=== PATIENT | female | born 1940 | race Caucasian/White ===

== ENCOUNTER 2025-02-19 21:46 | Inpatient (IN) ==
[2025-02-19 22:23] LABS: Hematocrit (blood only) 36.7 % (37.0-47.0); Hemoglobin 11.7 g/dl (12.0-16.0); Immature Granulocytes # (auto) 0.04 K/uL (0.01-0.20); Immature Granulocytes % (auto) 0.3 %; Mean Corpuscular Hemoglobin 29.3 pg (25.0-34.0); Mean Corpuscular Volume 92.0 fL (80.0-100.0); Platelet Count 309 K/uL (130-400); RDW Standard Deviation 46.0 fL (36.4-46.3); Red Blood Count 3.99 M/uL (4.20-5.40); White Blood Count 13.33 K/ul (4.8-10.8)
[2025-02-19 22:40] LABS: Alanine Aminotransferase 10.0 U/L (7-52); Albumin Globulin Ratio 1.1 (0.9-2); Alkaline Phosphatase 87.0 U/L (34-104); Anion Gap 11.0 (3-11); Bilirubin,Total 0.5 mg/dl (0.2-1.0); Blood Urea Nitrogen 31.0 mg/dl (6-23); Calcium 9.0 mg/dl (8.6-10.3); Carbon Dioxide 21.0 mmol/L (21-32); Chloride 106.0 mmol/L (98-107); Creatinine Clr Calc Pharmacy 44.5 ml/min; Globulin 3.6 gm/dl (2.5-4.0); Glucose 205.0 mg/dl (70-99(Fasting)); Lipase 53.0 U/L (11-82); Potassium 4.8 mmol/L (3.5-5.1); Sodium 138.0 mmol/L (136-145); Total Protein 7.5 gm/dl (6.0-8.3)
[2025-02-19 22:52] LABS: Appearance Urine Cloudy (Clear); Bacteria Urine Automated 4+ (None Seen); Cast Urine Automated 0-2 /lpf (0-2); Glucose Urine UA 2+ (Negative); WBC Urine Automated 21-50 /hpf (0-5)
[2025-02-19] MEDS: ONDANSETRON INJ 2 MG/ML 2 ML VIAL IV STA (23:13)
--- NOTE | 2025-02-19 23:58 | Emergency Department Note ---
Impression & Plan Acute upper abdominal pain, Cholelithiasis, Nausea, vomiting, and diarrhea, Acute UTI (urinary tract infection) ED Provider Note NAME: MAT CAZARES AGE: 85 SEX: Female INFORMANT: Patient ED PROVIDER(S): Danny Velasco MD CHIEF COMPLAINT: Nausea and vomiting PLAN: Disposition: Admitted Outpatient prescription management: none Referral: None MEDICAL DECISION MAKING: Patient presented because of nausea and vomiting. She also had chills. She had abdominal discomfort. She was tender in the epigastrium. Patient's CBC revealed a leukocytosis. Her urinalysis was abnormal and did raise concerns for infection although she has minimal symptoms. CT scan of the abdomen pelvis was performed. ECG performed and was abnormal without prior for comparison. Patient does not have any chest pain. She felt better after Zofran. CT imaging revealed presence of cholelithiasis. The patient was having discomfort in the right upper quadrant. Patient was given a dose of IV Rocephin. Discussed further evaluation and management in the hospital. Ultrasound imaging ordered. Consultation was made with Dr. Teja Banegas of the [facility] service. Patient was evaluated in the ER for further management. Care/management discussed with: patient accounts manager Level of care consideration(s): After review of the information above and other included data, I feel the patient requires escalation of care to admission Triage Nursing notes: reviewed and agree them. Vital Signs: reviewed and remarkable for no significant abnormalities Additional History obtained from: none Chronic Medical/Social Conditions affecting care: Hypertension, CAD, diabetes Prior/ Outside/ External records reviewed: none Differential Diagnosis: Etiologies such as gastroenteritis, food borne illness, infections, appendicitis, diverticulitis, inflammatory bowel disease, GI bleed, biliary pathology, as well as others were entertained. Diagnostics, independently interpreted by me: ECG: Twelve-lead ECG reveals a normal sinus rhythm at 75 bpm. Sinus arrhythmia present. Inferior lateral T wave inversions present. No prior for comparison. Cardiac Monitoring: Cardiac monitoring ordered by me: The patient was placed on continuous cardiac monitoring and observed. It revealed a normal sinus rhythm at 64 beats per minute without ectopy or evidence of dysrhythmia. Medical decision rules: none Imaging studies: CT scan as above. Cholelithiasis HPI: 85 year old Female arrives for evaluation of nausea, vomiting, diarrhea. This started after lunch today and is persisting. Patient states that she took a bite of crab cake and it was spicy. She did not finish this. She then noted about an hour later she developed the nausea and vomiting. The patient also notes the following associated symptoms, chills. Patient also noted that her blood sugar was elevated at 186. She notes epigastric abdominal pain. The patient has found no relieving factors. Current pain is rated as 4/10. Patient denies history of abdominal surgeries. She does note an umbilical hernia. She also notes a history of coronary artery disease and CABG. Patient denied any chest pain with this episode. She also has some chronic low back pain issues. Pt denies LOC, headache, fevers, diaphoresis, visual changes, neck pain, chest pain, breathing difficulties, new back pain, melena, hematochezia, urinary symptoms, numbness, weakness, lymphadenopathy, rash, or other complaints.. PAST MEDICAL HISTORY: See Below, CAD PAST SURGICAL HISTORY: See Below, CABG SOCIAL HISTORY: See Below, retired HOME MEDICATIONS: See Below ALLERGIES: See Below VITALS: See Below PHYSICAL EXAMINATION: GENERAL: Awake, alert, [id number], in no distress HENT: Normocephalic, atraumatic. Oropharynx unremarkable. EYES: Normal conjunctiva. Sclera non-icteric. NECK: Inspection normal. Non-tender. Supple. No nuchal rigidity. FROM. No masses. RESPIRATORY: Clear to auscultation. No wheezes. No rales. Normal respiratory effort. CARDIAC: Normal rate. Normal rhythm. No murmurs. No rubs. Extremities warm and well perfused. Pulses equal. No JVD. GI: Soft, non-distended. Epigastric tenderness to palpation. No rebound or guarding. No masses. RECTAL: Deferred. MUSCULOSKELETAL: Atraumatic. Chest examination reveals no tenderness. The back is symmetrical on inspection without obvious abnormality. There is no CVA tenderness to palpation. No joint edema. LOWER EXTREMITIES: Calves are equal size bilaterally and non-tender. No edema. No discoloration. NEURO: Normal sensorium. No sensory or motor deficits noted. SKIN: No rash or jaundice noted. 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 Beliefs That Will Affect Care: None Current Living Situation: Alone Feels Safe at Home: Yes Assistive Devices: CPAP Allergies Allergies Allergy/AdvReac Type Severity Reaction Status Date / Time [id number] Reductase AdvReac Cramping Verified 02/19/25 23:13 Inhibitor of the Muscles Home Meds Home Medications Medication Instructions Recorded Confirmed acetaminophen 500 mg tablet 500 mg PO BID 02/20/25 02/20/25 acidophilus 100 million 1 cap PO DAILY 02/20/25 02/20/25 cell-pectin, citrus 10 mg capsule aspirin 81 mg tablet 81 mg PO DAILY 02/20/25 02/20/25 carvedilol 25 mg tablet 25 mg PO BID 02/20/25 02/20/25 cyanocobalamin (vitamin B-12) 1,000 mcg PO DAILY 02/20/25 02/20/25 1,000 mcg tablet furosemide 20 mg tablet 20 mg PO .EVERY 24 HOURS 02/20/25 02/20/25 glimepiride 4 mg tablet 4 mg PO BIDM 02/20/25 02/20/25 insulin glargine U-300 conc 300 28 unit subcut HS 02/20/25 02/20/25 unit/mL (1.5 mL) subcutaneous pen (Ronna Bryan U-300 Insulin) isosorbide mononitrate 60 mg 60 mg PO DAILY 02/20/25 02/20/25 tablet,extended release 24 hr losartan 100 mg tablet 100 mg PO DAILY 02/20/25 02/20/25 metformin 1,000 mg tablet 1,000 mg PO BID 02/20/25 02/20/25 nitroglycerin 0.4 mg sublingual 0.4 mg sublingual UD PRN Chest Pain 02/20/25 02/20/25 tablet potassium chloride 20 mEq 20 meq PO DAILY 02/20/25 02/20/25 tablet,extended release(part/cryst) spironolactone 25 mg tablet 12.5 mg PO DAILY 02/20/25 02/20/25 Results & Data (ED) Vital Signs Vital Signs - 24 hr 02/19/25 21:48 02/19/25 23:17 02/19/25 23:21 Temperature 36.9 C Temperature Source Oral Pulse Rate 87 63 64 Pulse Rate [Apical] Pulse Rate [Left Finger] Pulse Rate from SpO2 Sensor Respiratory Rate 18 22 Respiratory Effort / Characteristics Non-Labored Spontaneous Respiratory Depth Normal Respiratory Pattern Blood Pressure 165/82 H 125/60 Blood Pressure [Left Arm] Blood Pressure [Right Arm] Blood Pressure Mean 109 99 Blood Pressure Mean [Left Arm] Blood Pressure Mean [Right Arm] Blood Pressure Position [Left Arm] Pulse Oximetry 91 97 Oxygen Delivery Method Room Air Oxygen Flow Rate Sepsis Recent Fever Within 48 Hours No Sepsis New/Unexplained Change in Mental Status N/A Sepsis Action Taken by Nursing No Action Required 02/20/25 01:08 02/20/25 01:28 02/20/25 01:57 Temperature Temperature Source Pulse Rate 62 67 68 Pulse Rate [Apical] Pulse Rate [Left Finger] Pulse Rate from SpO2 Sensor Respiratory Rate 18 20 20 Respiratory Effort / Characteristics Respiratory Depth Respiratory Pattern Blood Pressure 115/62 115/62 129/57 L Blood Pressure [Left Arm] Blood Pressure [Right Arm] Blood Pressure Mean 79 89 97 Blood Pressure Mean [Left Arm] Blood Pressure Mean [Right Arm] Blood Pressure Position [Left Arm] Pulse Oximetry 94 92 92 Oxygen Delivery Method Oxygen Flow Rate Sepsis Recent Fever Within 48 Hours Sepsis New/Unexplained Change in Mental Status Sepsis Action Taken by Nursing 02/20/25 02:30 02/20/25 03:00 02/20/25 03:20 Temperature Temperature Source Pulse Rate 65 64 57 L Pulse Rate [Apical] Pulse Rate [Left Finger] Pulse Rate from SpO2 Sensor Respiratory Rate 18 22 Respiratory Effort / Characteristics Respiratory Depth Respiratory Pattern Blood Pressure 117/63 111/49 L Blood Pressure [Left Arm] Blood Pressure [Right Arm] Blood Pressure Mean 75 79 Blood Pressure Mean [Left Arm] Blood Pressure Mean [Right Arm] Blood Pressure Position [Left Arm] Pulse Oximetry 95 97 Oxygen Delivery Method Oxygen Flow Rate Sepsis Recent Fever Within 48 Hours Sepsis New/Unexplained Change in Mental Status Sepsis Action Taken by Nursing 02/20/25 03:27 02/20/25 03:30 02/20/25 03:30 Temperature Temperature Source Pulse Rate 58 L Pulse Rate [Apical] Pulse Rate [Left Finger] Pulse Rate from SpO2 Sensor 58 L Respiratory Rate 22 Respiratory Effort / Characteristics Respiratory Depth Respiratory Pattern Blood Pressure 120/54 L 120/54 L Blood Pressure [Left Arm] Blood Pressure [Right Arm] Blood Pressure Mean 80 80 Blood Pressure Mean [Left Arm] Blood Pressure Mean [Right Arm] Blood Pressure Position [Left Arm] Pulse Oximetry 95 Oxygen Delivery Method Oxygen Flow Rate Sepsis Recent Fever Within 48 Hours Sepsis New/Unexplained Change in Mental Status Sepsis Action Taken by Nursing 02/20/25 03:30 02/20/25 03:30 02/20/25 04:52 Temperature 36.8 C Temperature Source Oral Pulse Rate 57 L Pulse Rate [Apical] 60 Pulse Rate [Left Finger] Pulse Rate from SpO2 Sensor 57 L Respiratory Rate 28 H 20 Respiratory Effort / Characteristics Non-Labored Respiratory Depth Normal Respiratory Pattern Regular Blood Pressure 120/54 L Blood Pressure [Left Arm] Blood Pressure [Right Arm] 137/73 Blood Pressure Mean 80 Blood Pressure Mean [Left Arm] Blood Pressure Mean [Right Arm] 94 Blood Pressure Position [Left Arm] Pulse Oximetry 97 98 Oxygen Delivery Method Nasal Cannula Oxygen Flow Rate 2 Sepsis Recent Fever Within 48 Hours Sepsis New/Unexplained Change in Mental Status Sepsis Action Taken by Nursing 02/20/25 07:05 02/20/25 07:06 02/20/25 07:07 Temperature 36.9 C Temperature Source Oral Pulse Rate 68 Pulse Rate [Apical] 70 Pulse Rate [Left Finger] Pulse Rate from SpO2 Sensor Respiratory Rate 20 Respiratory Effort / Characteristics Non-Labored Non-Labored Respiratory Depth Normal Normal Respiratory Pattern Blood Pressure Blood Pressure [Left Arm] Blood Pressure [Right Arm] Blood Pressure Mean Blood Pressure Mean [Left Arm] Blood Pressure Mean [Right Arm] Blood Pressure Position [Left Arm] Pulse Oximetry 97 Oxygen Delivery Method Nasal Cannula Nasal Cannula Oxygen Flow Rate 2 2 Sepsis Recent Fever Within 48 Hours Sepsis New/Unexplained Change in Mental Status Sepsis Action Taken by Nursing 02/20/25 08:38 Temperature 36.7 C Temperature Source Oral Pulse Rate Pulse Rate [Apical] Pulse Rate [Left Finger] 70 Pulse Rate from SpO2 Sensor Respiratory Rate 18 Respiratory Effort / Characteristics Non-Labored Respiratory Depth Normal Respiratory Pattern Blood Pressure Blood Pressure [Left Arm] 168/78 H Blood Pressure [Right Arm] Blood Pressure Mean Blood Pressure Mean [Left Arm] 108 Blood Pressure Mean [Right Arm] Blood Pressure Position [Left Arm] Sitting Pulse Oximetry 91 Oxygen Delivery Method Room Air Oxygen Flow Rate Sepsis Recent Fever Within 48 Hours Sepsis New/Unexplained Change in Mental Status Sepsis Action Taken by Nursing Laboratory Data 02/20/25 09:16 02/20/25 09:16 Lab Results 02/19/25 02/19/25 02/20/25 Range/Units 22:10 22:40 02:44 WBC 13.33 H (4.8-10.8) K/ul RBC 3.99 L (4.20-5.40) M/uL Hgb 11.7 L (12.0-16.0) g/dl Hct 36.7 L (37.0-47.0) % MCV 92.0 (80.0-100.0) fL MCH 29.3 (25.0-34.0) pg MCHC 31.9 L (32.0-36.0) g/dL RDW Std Deviation 46.0 (36.4-46.3) fL RDW Coeff of Mela 13.5 (11.5-14.5) % Plt Count 309 (130-400) K/uL MPV 9.4 (9.4-12.4) fL Immature Gran % (Auto) 0.3 % Neut % (Auto) 89.8 % Lymph % (Auto) 4.4 % Merrick % (Auto) 4.1 % Eos % (Auto) 1.1 % Baso % (Auto) 0.3 % Neut # (Auto) 11.98 H (1.40-6.50) K/uL Lymph # (Auto) 0.58 L (1.20-3.40) K/uL Merrick # (Auto) 0.54 (0.11-0.59) K/uL Eos # (Auto) 0.15 (0.00-0.50) K/uL Baso # (Auto) 0.04 (0.00-0.20) K/uL Immature Gran # (Auto) 0.04 (0.01-0.20) K/uL Sodium 138 (136-145) mmol/L Potassium 4.8 (3.5-5.1) mmol/L Chloride 106 (98-107) mmol/L Carbon Dioxide 21 (21-32) mmol/L Anion Gap 11 (3-11) BUN 31 H (6-23) mg/dl Creatinine 0.98 (0.6-1.2) mg/dl Est Cr Clr Drug Dosing 44.5 ml/min eGFR 56.56 BUN/Creatinine Ratio 31.6 H (10-20) Glucose 205 H (70-99(Fasting)) mg/dl POC Glucose (70-99) mg/dl Estimat Average Glucose mg/dl Hemoglobin A1c (4.5-5.6) % Calcium 9.0 (8.6-10.3) mg/dl Magnesium (1.7-2.4) mg/dl Total Bilirubin 0.5 (0.2-1.0) mg/dl AST 12 L (13-39) U/L ALT 10 (7-52) U/L Alkaline Phosphatase 87 (34-104) U/L Troponin I High Sens 10.6 (0-14) pg/ml Total Protein 7.5 (6.0-8.3) gm/dl Albumin 3.9 (3.4-5.0) gm/dl Globulin 3.6 (2.5-4.0) gm/dl Albumin/Globulin Ratio 1.1 (0.9-2) Lipase 53 (11-82) U/L Urine Color Yellow Urine Appearance Cloudy A (Clear) Urine pH 5.0 (4.5-7.5) Ur Specific Bethany 1.017 (1.000-1.030) Urine Protein Negative (Negative) Urine Glucose (UA) 2+ H (Negative) Urine Ketones Negative (Negative) Urine Blood Negative (Negative) Urine Nitrite Positive A (Negative) Urine Bilirubin Negative (Negative) Urine Urobilinogen Negative (Negative) Ur Leukocyte Esterase 2+ H (Negative) Urine WBC (Auto) 21-50 H (0-5) /hpf Urine RBC (Auto) 3-5 H (0-2) /hpf U Hyaline Cast (Auto) 0-2 (0-2) /lpf U Epithel Cells (Auto) 3-5 H (0-2) /hpf Urine Bacteria (Auto) 4+ H (None Seen) Urine Comment Enterobacterales (PCR) DETECTED A (NotDetected) K. pneumoniae group (PCR) DETECTED A (NotDetected) mcr-1 Colistin Res Gene PCR Not Detected (NotDetected) blaIMP Car res Gene PCR Not Detected (NotDetected) KPC-Carbap Res Gene PCR Not Detected (NotDetected) blaNDM Car Res Gene PCR Not Detected (NotDetected) OXA-48 Carbapenem Resis Gene (PCR) Not Detected (NotDetected) blaVIM Car Res Gene PCR Not Detected (NotDetected) CTX-M Gene Resistance (PCR) Not Detected (NotDetected) Bld Cult ID Panel PCR See PCR Comment (NotDetected) 02/20/25 02/20/25 Range/Units 07:03 09:16 WBC 17.51 H (4.8-10.8) K/ul RBC 3.76 L (4.20-5.40) M/uL Hgb 11.0 L (12.0-16.0) g/dl Hct 35.1 L (37.0-47.0) % MCV 93.4 (80.0-100.0) fL MCH 29.3 (25.0-34.0) pg MCHC 31.3 L (32.0-36.0) g/dL RDW Std Deviation 47.1 H (36.4-46.3) fL RDW Coeff of Mela 13.9 (11.5-14.5) % Plt Count 294 (130-400) K/uL MPV 9.6 (9.4-12.4) fL Immature Gran % (Auto) 0.6 % Neut % (Auto) 85.9 % Lymph % (Auto) 5.8 % Merrick % (Auto) 6.9 % Eos % (Auto) 0.5 % Baso % (Auto) 0.3 % Neut # (Auto) 15.04 H (1.40-6.50) K/uL Lymph # (Auto) 1.02 L (1.20-3.40) K/uL Merrick # (Auto) 1.20 H (0.11-0.59) K/uL Eos # (Auto) 0.08 (0.00-0.50) K/uL Baso # (Auto) 0.06 (0.00-0.20) K/uL Immature Gran # (Auto) 0.11 (0.01-0.20) K/uL Sodium 139 (136-145) mmol/L Potassium 4.8 (3.5-5.1) mmol/L Chloride 108 H (98-107) mmol/L Carbon Dioxide 25 (21-32) mmol/L Anion Gap 6 (3-11) BUN 29 H (6-23) mg/dl Creatinine 0.98 (0.6-1.2) mg/dl Est Cr Clr Drug Dosing 44.5 ml/min eGFR 56.56 BUN/Creatinine Ratio 29.6 H (10-20) Glucose 161 H (70-99(Fasting)) mg/dl POC Glucose 158 H (70-99) mg/dl Estimat Average Glucose 226 mg/dl Hemoglobin A1c 9.5 H (4.5-5.6) % Calcium 8.6 (8.6-10.3) mg/dl Magnesium 1.3 L (1.7-2.4) mg/dl Total Bilirubin 0.4 (0.2-1.0) mg/dl AST 14 (13-39) U/L ALT 13 (7-52) U/L Alkaline Phosphatase 67 (34-104) U/L Troponin I High Sens (0-14) pg/ml Total Protein 6.9 (6.0-8.3) gm/dl Albumin 3.9 (3.4-5.0) gm/dl Globulin 3.0 (2.5-4.0) gm/dl Albumin/Globulin Ratio 1.3 (0.9-2) Lipase (11-82) U/L Urine Color Urine Appearance (Clear) Urine pH (4.5-7.5) Ur Specific Bethany (1.000-1.030) Urine Protein (Negative) Urine Glucose (UA) (Negative) Urine Ketones (Negative) Urine Blood (Negative) Urine Nitrite (Negative) Urine Bilirubin (Negative) Urine Urobilinogen (Negative) Ur Leukocyte Esterase (Negative) Urine WBC (Auto) (0-5) /hpf Urine RBC (Auto) (0-2) /hpf U Hyaline Cast (Auto) (0-2) /lpf U Epithel Cells (Auto) (0-2) /hpf Urine Bacteria (Auto) (None Seen) Urine Comment Enterobacterales (PCR) (NotDetected) K. pneumoniae group (PCR) (NotDetected) mcr-1 Colistin Res Gene PCR (NotDetected) blaIMP Car res Gene PCR (NotDetected) KPC-Carbap Res Gene PCR (NotDetected) blaNDM Car Res Gene PCR (NotDetected) OXA-48 Carbapenem Resis Gene (PCR) (NotDetected) blaVIM Car Res Gene PCR (NotDetected) CTX-M Gene Resistance (PCR) (NotDetected) Bld Cult ID Panel PCR (NotDetected) Administered Medications Carvedilol (Carvedilol 25 Mg Tab) [address] Stop: 03/22/25 08:59 Last Admin: 02/20/25 10:20 Dose: 25 mg Documented By: AMANDA Enoxaparin Sodium (Enoxaparin Inj 40 Mg/0.4 Ml Syr) [address] Stop: 03/22/25 08:59 Last Admin: 02/20/25 10:21 Dose: 40 mg Documented By: AMANDA Insulin Aspart (Insulin Aspart Per Unit Charge) [address] Stop: 03/22/25 05:59 Last Admin: 02/20/25 17:39 Dose: 4 units Documented By: Co-signed By: THEODORE Admin: 02/20/25 12:18 Dose: 2 units Documented By: Co-signed By: AMANDA Admin: 02/20/25 07:06 Dose: Not Given Documented By: TIRSTAN Insulin Glargine (Lantus Per Unit Charge) [address] Stop: 03/22/25 08:59 Last Admin: 02/20/25 12:15 Dose: 20 units Documented By: Co-signed By: AMANDA Isosorbide Mononitrate (Isosorbide Merrick Extended Rel 60 Mg Tabcr) [address] Stop: 03/22/25 08:59 Last Admin: 02/20/25 10:20 Dose: 60 mg Documented By: AMANDA Losartan Potassium (Losartan Potassium 50 Mg Tab) [address] Stop: 03/22/25 08:59 Last Admin: 02/20/25 10:21 Dose: 100 mg Documented By: AMANDA Discontinued Medications Ceftriaxone Sodium (Rocephin) 2,000 mg in 50 mls @ 100 mls/hr IV NOW STA Stop: 02/20/25 02:04 Last Infusion: 02/20/25 03:11 Dose: Infused Documented By: Admin: 02/20/25 02:41 Dose: 100 mls/hr Documented By: JEFERSON Sodium Chloride (Nss) 1,000 mls @ 125 mls/hr IV .Q8H AVE Stop: 02/23/25 01:44 Last Infusion: 02/20/25 18:20 Dose: Infused Documented By: Admin: 02/20/25 10:17 Dose: 125 mls/hr Documented By: Infusion: 02/20/25 10:17 Dose: Infused Documented By: Admin: 02/20/25 02:26 Dose: 125 mls/hr Documented By: JEFERSON Metronidazole (Flagyl) 500 mg in 100 mls @ 100 mls/hr IV Q8H AVE; Protocol Stop: 03/02/25 04:59 Last Infusion: 02/20/25 06:11 Dose: Infused Documented By: Admin: 02/20/25 05:11 Dose: 100 mls/hr Documented By: JEFERSON Magnesium Sulfate/Dextrose (Magnesium Sulfate / D5w) 1 gm in 100 mls @ 50 mls/hr IV Q2H AVE Stop: 02/20/25 17:14 Last Infusion: 02/20/25 18:02 Dose: Infused Documented By: Admin: 02/20/25 15:53 Dose: 50 mls/hr Documented By: Infusion: 02/20/25 15:46 Dose: Infused Documented By: Admin: 02/20/25 13:45 Dose: 50 mls/hr Documented By: Infusion: 02/20/25 13:45 Dose: Infused Documented By: Admin: 02/20/25 12:13 Dose: 50 mls/hr Documented By: Ondansetron HCl (Ondansetron Inj 2 Mg/Ml 2 Ml Vial) 4 mg IV NOW STA Stop: 02/19/25 23:02 Last Admin: 02/19/25 23:13 Dose: 4 mg Documented By: JEFERSON Discharge Plan Visit Data Chief Complaint: Hyperglycemia Stated Complaint: CHILLS, HYPERGLYCEMIA, ABD DISCOMFORT ED Provider: Danny Velasco Discharge Problem: Acute upper abdominal pain, Cholelithiasis, Nausea, vomiting, and diarrhea, Acute UTI (urinary tract infection) Patient Disposition: Admitted As Inpatient Condition: Good Discharge Instructions Interventions: ED Discharge Assessment Last Done: 02/20/25 03:37
--- NOTE | 2025-02-20 01:46 | History & Physical Report ---
Date of Service February 20, 2025 Assessment & Plan (1) Nausea, vomiting, and diarrhea: Plan: Indy is an 85-year-old female with a history of type II DM, CABG in PCI denies clinical history of heart failure statin intolerance, GERD who presented with shaking chills abdominal pain nausea/vomiting after eating crab cakes. Nausea/vomiting. DDx includes cholecystitis versus food poisoning Patient reports episode of shaking chills, vomiting, and epigastric discomfort after eating crab cakes for dinner No prior discomfort with meals, no can colored stools, no weight loss Due to stone filled/distended gallbladder was recommended for admission and observation for potential cholecystitis. Does have a leukocytosis, this may also be from demargination with vomiting versus infection Blood cultures were obtained due to shaking chills Rocephin/Flagyl continued CTA/P with stone filled? Distended gallbladder Gallbladder ultrasound ordered/pending No transaminitis Asymptomatic bacteriuria Patient has a pessary. UA is infected versus contaminated appearing. Small focus of air ?related to pessary use vs UTI She reports she is not having dysuria, polyuria, hesitancy, or any feeling she has had a UTI. Clinically w/ asymptomatic bacteriuria. She is on Rocephin/Flagyl for gallbladder coverage as noted. CAD, history of CABG and PCI Denies chest pain, chest pressure, shortness of breath, difficulty breathing Denies clinical history of CHF but is on Lasix daily Past history of CABG, PCI x 2, had a cath eval for potential need for third stent in [place] however did not require this Carvedilol, aspirin 81 mg daily, isosorbide, MRA continued Losartan held pending completion of gallbladder evaluation Type II DM Metformin held Glimepiride held Continue glargine daily, dose reduced from 28 units to 20 units while NPO SSI N.p.o. pending upper quadrant ultrasound results Goal BSG [id number] DVT prophylaxis: Lovenox Disposition: MSO CODE STATUS: DNR/DNI, discussed on admission Diet: N.p.o. (2) Hx of CABG: (3) History of heart artery stent: (4) HTN (hypertension): (5) DM2 (diabetes mellitus, type 2): History of Present Illness Primary Care Provider: JEREMÍAS Fierro is an 85-year-old female visiting from out of town with a past medical history of hypertension, type II DM, CAD/CABG who presents with naus ea/vomiting/diarrhea after lunch today. Patient notes she had some crab cakes and then had nausea/vomiting shortly after this. She has had chills throughout the day. She has had epigastric and right upper quadrant discomfort. She has a leukocytosis on admission and a distended stone filled gallbladder on CT. She is recommended for admission for evaluation of potential acute cholecystitis. Differential includes food poisoning. She has a infected versus contaminated UA, she denies urinary symptoms. She is seen at the bedside. She went out for dinner and had a crab cake and puff potatoes. Very shortly after eating, and noting it was fairly spicy, had an off stomach feeling and felt clammy, shakey, and cold. +nausea, 2 episodes of vomiting with mostly the crab food she had eating. 2 episodes of diarrhea. Denies abdominal pain. Has had intermittent pain with meals, but has not noticed whether particular meals set it off. Salad gives her loose bowls. Has not had problems with greasy foods/meats but does nto eat much of this. Does like cheese, no pain with this. BMs generally regular 1-2x per day. Denies white/can colored/martínez stools. DId have shaking chills today shortly before vomiting No dysuria. Does wear a pessary, has noticed some pressure with this but no other urinary symptoms. No polyuria. No chest pain, chest pressure, or dyspnea. Hx CABG at age 72. Also has 2 stents. Was going to have a 3rd stent but on last PCI did not need it. Back Padder is Robert Yip in [place]. Was done at [facility]. Denies history of CHF No chest pain recently. Medical History: Reviewed Medications: Reviewed Surgical History: Reviewed Family history: Reviewed Allergies: Reviewed. Myalgias to statins. Also w nosebleeds to statins. Social History: NO tobacco product use. No ETOH use. Code Status: DNR/DNI Allergies Allergy/AdvReac Type Severity Reaction Status Date / Time [id number]-[id number] Reductase AdvReac Cramping Verified 02/19/25 23:13 Inhibitor of the Muscles Home Medications Medication Instructions Recorded Confirmed Type acetaminophen 500 mg tablet 500 mg PO BID 02/20/25 02/20/25 History acidophilus 100 million 1 cap PO DAILY 02/20/25 02/20/25 History cell-pectin, citrus 10 mg capsule aspirin 81 mg tablet 81 mg PO DAILY 02/20/25 02/20/25 History carvedilol 25 mg tablet 25 mg PO BID 02/20/25 02/20/25 History cyanocobalamin (vitamin B-12) 1,000 mcg PO DAILY 02/20/25 02/20/25 History 1,000 mcg tablet furosemide 20 mg tablet 20 mg PO .EVERY 24 HOURS 02/20/25 02/20/25 History glimepiride 4 mg tablet 4 mg PO BIDM 02/20/25 02/20/25 History insulin glargine U-300 conc 300 28 unit subcut HS 02/20/25 02/20/25 History unit/mL (1.5 mL) subcutaneous pen ([employer] SoloStar U-300 Insulin) isosorbide mononitrate 60 mg 60 mg PO DAILY 02/20/25 02/20/25 History tablet,extended release 24 hr losartan 100 mg tablet 100 mg PO DAILY 02/20/25 02/20/25 History metformin 1,000 mg tablet 1,000 mg PO BID 02/20/25 02/20/25 History nitroglycerin 0.4 mg sublingual 0.4 mg sublingual UD PRN Chest Pain 02/20/25 02/20/25 History tablet potassium chloride 20 mEq 20 meq PO DAILY 02/20/25 02/20/25 History tablet,extended release(part/cryst) spironolactone 25 mg tablet 12.5 mg PO DAILY 02/20/25 02/20/25 History Past Med/Surg History Problem List (Updated 02/20/25 @ 03:35 by Background Daemon) DM2 (diabetes mellitus, type 2) HTN (hypertension) History of heart artery stent Hx of CABG Acute UTI (urinary tract infection) (Acute) Nausea, vomiting, and diarrhea (Acute) Cholelithiasis (Acute) Acute upper abdominal pain (Acute) Social History Smoking Status: Never smoker Feels Safe at Home: Yes Physical Exam Physical Exam: General: A&Ox3. NAD. Cooperative. HEENT: Atraumatic, normocephalic. Hearing grossly intact Pulm: CTAB A&P. -wheezes, -rales, -rhonchi. Symmetrical chest rise. No increased work of breathing. No respiratory distress. Cardiac: RRR, -mrg. Radial pulses intact and symmetrical. Abdominal: Nontender, nondistended, soft. BS present. Ext: warm, dry. No edema Results & Data Results & Data Vital Signs (Past 12 Hours) Vital Signs Temp Pulse Resp BP Pulse Ox O2 Del Method 02/20/25 01:08 62 18 115/62 94 02/19/25 23:21 64 02/19/25 23:17 63 22 125/60 97 02/19/25 21:48 36.9 C 87 18 165/82 H 91 Room Air PG Care Time/CCT Total # of Minutes Spent Total Time Spent with Patient: Total time spent is greater than 50% in coordination of care (as documented) at patient's floor/unit and/or counseling patient: Coding Level of Care Code 73741 INT INP/OBS CARE 3/75MIN Diagnoses Nausea, vomiting, and diarrhea R11.2; R19.7 Hx of CABG Z95.1 History of heart artery stent Z95.5 HTN (hypertension) I10 DM2 (diabetes mellitus, type 2) E11.9
[2025-02-20] MEDS: SODIUM CHLORIDE 0.9% 1,000 ML IV SCH (02:26)
--- NOTE | 2025-02-20 02:37 | Ultrasound Report ---
EXAM: US gallbladder CLINICAL HISTORY: Abdominal pain, cholelithiasis. TECHNIQUE: Ultrasound examination of the RUQ was performed using a [high-frequency transducer]. Scanning was performed with the patient in the supine position. The following structures were specifically evaluated: COMPARISON: None available. FINDINGS: Liver: Liver span: 16.2 cm. Liver appears normal in size with homogeneous bright fatty echotexture. No evidence of focal lesions, cysts, or masses. Hepatic vasculature appears normal. Gallbladder: The gallbladder is visualized and appears normal in size and shape. Multiple echogenic stones were seen within, negative Lynn's sign. GB wall thickness 3 mm. No pericholecystic fluid noted. No signs of acute cholecystitis. Biliary Tree: Common bile duct diameter: 5.4 mm. The common bile duct is within normal limits in caliber and not dilated. No evidence of choledocholithiasis or biliary obstruction. Right Kidney: Right kidney size: [Measurements in length (11.3 cm) ]. The right kidney appears normal in size with preserved corticomedullary differentiation. No evidence of hydronephrosis, renal cysts, or masses. Additional Findings: The pancreas is not well visualized due to bowel gases. IMPRESSION: 1. Diffuse hepatic steatosis. 2. Cholelithiasis without sonographic evidence of acute cholecystitis. 3. Normal common bile duct with no biliary dilatation or obstruction. RECOMMENDATIONS: Clinical correlation with symptoms and further evaluation as indicated. Electronically signed by Nahum Romero 02-20-2025 02:37 AM
[2025-02-20] MEDS: cefTRIAXone SODIUM 2,000 MG/50 ML BAG IV STA (02:41)
--- NOTE | 2025-02-20 03:32 | CT Scan Report ---
Exam(s): CT ABDOMEN + PELVIS Without Contrast EXAM: CT Abdomen and Pelvis Without Intravenous Contrast CLINICAL HISTORY: Reason for exam: abd pain, vomiting. TECHNIQUE: Axial computed tomography images of the abdomen and pelvis without intravenous contrast. CTDI is 27.2 mGy and DLP is 1395.08 mGy-cm. Automated exposure control was utilized for the study. A dose lowering technique was utilized adhering to the principles of ALARA. COMPARISON: No relevant prior studies available. FINDINGS: Exam is limited due to lack of contrast. Lung bases: . No consolidation. The heart is not enlarged but contains coronary artery calcifications ABDOMEN: Liver: The liver is enlarged. Gallbladder and bile ducts: There are multiple gallstones within the gallbladder.. No ductal dilation. Pancreas: The visualized portions of the pancreas, on this noncontrast study, are grossly unremarkable.. Spleen: No splenomegaly. Adrenals: No mass. Kidneys and ureters: No obstructing stones. No hydronephrosis. Stomach and bowel: There are retained foodstuffs within the stomach. There is air and stool noted in the colon. There are diverticula present on the colon. No significant inflammatory changes are seen.. PELVIS: Appendix: No findings to suggest acute appendicitis. Bladder: No calculi are noted within the bladder. There is a small bubble of air noted within the bladder.. Reproductive: A uterine pessary is noted.. ABDOMEN and PELVIS: Intraperitoneal space: No free air. No significant fluid collection. Bones/joints: There are marked degenerative changes in the spine.. Soft tissues: There is an umbilical hernia containing fat.. Vasculature: There are atherosclerotic changes. No abdominal aortic aneurysm. Lymph nodes: No enlarged lymph nodes. IMPRESSION: Diverticulosis. Cholelithiasis. Hepatomegaly. There is a small bubble of air noted within the urinary bladder. This can be seen with recent instrumentation. Cannot exclude a process such as cystitis. Electronically signed by: Kang Zapata MD 02/20/25 03:31 AM
[2025-02-20] MEDS ORDERED: CARBOHYDRATES FOR HYPOGLYCEMIA PO PRN (03:37)
[2025-02-20] MEDS ORDERED: DEXTROSE 50% 50 ML SYRINGE IV PRN (03:37)
[2025-02-20] MEDS ORDERED: GLUCOSE 10 TAB/TUBE PO PRN (03:37)
[2025-02-20] MEDS ORDERED: GLUCOSE 40% GEL 15 GM TUBE PO PRN (03:37)
[2025-02-20] MEDS ORDERED: NON-FORMULARY MEDICATION (Estradiol 0.01 % (0.1 mg/gram) cream) PV SCH (03:37)
[2025-02-20] MEDS ORDERED: GLUCAGON FOR INJ 1 MG VIAL SQ PRN (03:37)
[2025-02-20] MEDS ORDERED: ACETAMINOPHEN 325 MG TAB PO PRN (03:37)
[2025-02-20] MEDS: metroNIDAZOLE 500 MG/100 ML BAG IV SCH (05:11)
[2025-02-20] MEDS: INSULIN ASPART PER UNIT CHARGE SC SCH ×2 (07:06→21:58)
[2025-02-20 09:45] LABS: Hematocrit (blood only) 35.1 % (37.0-47.0); Hemoglobin 11.0 g/dl (12.0-16.0); Immature Granulocytes # (auto) 0.11 K/uL (0.01-0.20); Immature Granulocytes % (auto) 0.6 %; Mean Corpuscular Hemoglobin 29.3 pg (25.0-34.0); Mean Corpuscular Volume 93.4 fL (80.0-100.0); Platelet Count 294 K/uL (130-400); RDW Standard Deviation 47.1 fL (36.4-46.3); Red Blood Count 3.76 M/uL (4.20-5.40); White Blood Count 17.51 K/ul (4.8-10.8)
[2025-02-20 10:00] LABS: Alanine Aminotransferase 13.0 U/L (7-52); Albumin Globulin Ratio 1.3 (0.9-2); Alkaline Phosphatase 67.0 U/L (34-104); Anion Gap 6.0 (3-11); Bilirubin,Total 0.4 mg/dl (0.2-1.0); Blood Urea Nitrogen 29.0 mg/dl (6-23); Calcium 8.6 mg/dl (8.6-10.3); Carbon Dioxide 25.0 mmol/L (21-32); Chloride 108.0 mmol/L (98-107); Creatinine Clr Calc Pharmacy 44.5 ml/min; Globulin 3.0 gm/dl (2.5-4.0); Glucose 161.0 mg/dl (70-99(Fasting)); Magnesium 1.3 mg/dl (1.7-2.4); Potassium 4.8 mmol/L (3.5-5.1); Sodium 139.0 mmol/L (136-145); Total Protein 6.9 gm/dl (6.0-8.3)
[2025-02-20] MEDS: ISOSORBIDE MONO EXTENDED REL 60 MG TABCR PO SCH (10:20)
[2025-02-20] MEDS: LOSARTAN POTASSIUM 50 MG TAB PO SCH (10:21)
[2025-02-20] MEDS: ENOXAPARIN INJ 40 MG/0.4 ML SYR SQ SCH (10:21)
--- NOTE | 2025-02-20 11:12 | Hospitalist Progress Note ---
Date of Service February 20, 2025 Assessment & Plan (1) UTI (urinary tract infection): (2) Nausea, vomiting, and diarrhea: (3) Hypomagnesemia: (4) Hx of CABG: Plan Mrs. Cobb is an 85-year-old female with a history of type II DM, CABG in PCI denies clinical history of heart failure statin intolerance, GERD who presented with shaking chills abdominal pain nausea/vomiting after eating crab cakes. #UTI | Intractable N/V/D/Bacteremia UA infected appearing on arrival Patient was not septic on arrival; VSS stable on 02/20; afebrile However, leukocytosis trend 13 -> 17 Despite this, clinically the patient reports she is doing better on 02/20 A/P CT did note small focus of air in the urinary bladder; no recent catheter or procedures; ?related to UTI Clinically, she denies dysuria, polyuria, hesitancy, or burning with urination Preliminary UCx on 02/20 growing Klebsiella pneumonia (no prior urine cultures available) Preliminary blood culture on 02/20 growing gram-negative bacilli on cx, Klebsiella pneumoniae on [employer] Ceftriaxone 2000 mg IV q24h #Intractable N/V/D No transaminitis Improvement on 02/20; tolerating clear liquid diet Initially, patient believed her symptoms were due to "food poisoning" on 02/19 However, she has had intermittent diarrhea over the past several days No blood in stool, no recent antibiotic use PCR stool/C. difficile ordered, pending IV antiemetics PRN Gallbladder ultrasound revealed no sonographic evidence of acute cholecystitis; no biliary duct dilation or obstruction Clear liquid diet, and advance as tolerated #Hypomagnesemia Magnesium low at 1.3 on 02/20 Suspect secondary to GI losses Magnesium sulfate 1 g IV x 3 Recheck a.m. mag #CAD | H/o CABG and PCI Denies chest pain, chest pressure, shortness of breath, difficulty breathing Denies clinical history of CHF but is on Lasix daily Past history of CABG, PCI x 2, had a cath eval for potential need for third stent in [place] however did not require this Continue isosorbide, aspirin daily EKG on arrival did reveal inverted T waves; given no prior EKGs available on record, repeat EKG has been ordered on 02/20 #Type II DM A1c 9.5% on 03/13 5 Hold metformin, glimepiride Lantus dose reduced from 28u -> 20u in the setting of poor p.o. intake SSI with target BSG range 110-140mg/dL, CF 40, carb ratio 20 Clear liquid, T2DM diet BSG ACHS Adjust regimen as needed #HTN Continue carvedilol, losartan Lasix and spironolactone were held on 02/20 while patient was n.p.o. receiving IV fluids Will plan to reinitiate both on 02/21 Disposition: Continued stay on MedSurg Diet: Clear liquid diet, advance as tolerated VTE PPx: Lovenox 40 mg SQ q24h Admission and Anticipated Discharge Date Admission Date: February 20, 2025 Supervising Physician Co-Signing Physician Notes JAYJAY Supervision Note: I did not personally see or examine the patient today, but I verified all cornejo points of JAYJAY Blandon's assessment and plan with the following exceptions/additions: None Subjective Mrs. Cobb is resting peacefully in bed this morning. She reports she feels much better today when compared to yesterday. She had difficulty sleeping last night, and reports she has been taking "catnaps" throughout the day. She has been up to the bathroom today, but has not had any bowel movements. No dizziness or lightheadedness with ambulation. Patient reconfirms her story at bedside: She was out at lunch yesterday and ordered a spicy crab cake, with lettuce tomato and estrada. Normally she does not tolerate spicy foods. Approximately 2 to 3 hours after eating a few bites of this crab cake, she began "up choking". She also began having diarrhea that evening. She notes she has had diarrhea intermittently in the past, but not on a daily basis. No blood in her stool. No recent antibiotic use. She reports no setbacks overnight. No fevers. No nausea or vomiting so far in the hospital. She denies having any right upper quadrant pain at this time. She has been tolerating light fluids this morning/clear liquid diet. ROS: Patient endorses diarrhea. Patient denies fever, chills, night sweats, dizziness/lightheadedness with ambulation, chest pain, SOB, chest palpitations, pleuritic CP, cough, abdominal pain (specifically right upper quadrant abdominal pain), nausea or vomiting in the hospital (resolved), blood in the urine or stool, burning urination, or dysuria. Review of Systems Review of Systems: See HPI above Physical Exam Physical Exam: General: no acute distress; pleasant affect; resting peacefully in bed; non- toxic appearing; well-nourished; cooperative; SpO2 91% on RA HEENT: normocephalic, atraumatic; no scleral icterus; PERRLA; vision and hearing grossly intact Neck: supple; trachea midline Skin: warm, dry without signs of tenting; no cyanosis; no rashes, bruising, lesions, or erythema noted CV: chest wall NTP; RRR; S1/S2 normal; no murmurs/rubs/gallops; pulses intact and symmetric at radial, DP, and PT Lungs: no acute respiratory distress; symmetrical chest wall expansion; clear breath sounds across all lung [place] w/o adventitious sounds; no wheezing ABD: Soft, mildly TTP in the right upper quadrant (however patient characterizes it as "discomfort" when pushing); no rashes or bruising appreciated on the abdomen or flanks bilaterally BS present; no rebound/guarding; no distention MSK: no tics or fasciculations; no edema noted in the LEs b/l, nonerythematous (stockings in place) Neuro: A&Ox3; normal mood and affect; fluent speech; no focal deficits; sensation intact and symmetric in lower extremities bilaterally Results & Data Results & Data Vital Signs (Past 12 Hours) Vital Signs Temp Pulse Pulse Pulse Resp BP BP 02/20/25 08:38 36.7 C 70 18 168/78 H 02/20/25 07:07 02/20/25 07:06 68 02/20/25 07:05 36.9 C 70 20 02/20/25 04:52 36.8 C 60 20 02/20/25 03:30 57 L 28 H 02/20/25 03:30 120/54 L 02/20/25 03:30 120/54 L 02/20/25 03:30 120/54 L 02/20/25 03:27 58 L 22 02/20/25 03:20 57 L 02/20/25 03:00 64 22 111/49 L 02/20/25 02:30 65 18 117/63 02/20/25 01:57 68 20 129/57 L 02/20/25 01:28 67 20 115/62 02/20/25 01:08 62 18 115/62 02/19/25 23:21 64 02/19/25 23:17 63 22 125/60 BP Pulse Ox O2 Del Method O2 Flow Rate 02/20/25 08:38 91 Room Air 02/20/25 07:07 Nasal Cannula 2 02/20/25 07:06 02/20/25 07:05 97 Nasal Cannula 2 02/20/25 04:52 137/73 98 Nasal Cannula 2 02/20/25 03:30 97 02/20/25 03:30 02/20/25 03:30 02/20/25 03:30 02/20/25 03:27 95 02/20/25 03:20 02/20/25 03:00 97 02/20/25 02:30 95 02/20/25 01:57 92 02/20/25 01:28 92 02/20/25 01:08 94 02/19/25 23:21 02/19/25 23:17 97 PG Care Time/CCT Total # of Minutes Spent Total Time Spent with Patient: Total time spent is greater than 50% in coordination of care (as documented) at patient's floor/unit and/or counseling patient: Coding [place] [address] SUB INP/OBS CARE 3/50MIN Patient Type Established Medical Decision Making High Complexity Diagnoses UTI (urinary tract infection) N39.0 Nausea, vomiting, and diarrhea R11.2; R19.7 Hypomagnesemia E83.42 Hx of CABG Z95.1
[2025-02-20 12:06] LABS: Hemoglobin A1C 9.5 % (4.5-5.6)
[2025-02-20] MEDS: MAGNESIUM SULFATE / D5W 1 GM/100 ML BAG IV SCH (12:13)
[2025-02-20] MEDS: LANTUS PER UNIT CHARGE SQ SCH (12:15)
[2025-02-20 15:38] LABS: A calco-baum cmplx NotReported Not Detected (NotDetected); Bact fragilis Not Reported Not Detected (NotDetected); Blood Culture Id Panel See PCR Comment (NotDetected); C auris Not Reported Not Detected (NotDetected); CTX-M Resistant Gene Not Detected (NotDetected); Calbicans Not Reported Not Detected (NotDetected); Candida glabrata Not Reported Not Detected (NotDetected); Candida krusei Not Reported Not Detected (NotDetected); Cneoformans/gatti Not Reported Not Detected (NotDetected); Cparapsilosis Not Reported Not Detected (NotDetected); Ctropicalis Not Reported Not Detected (NotDetected); E cloacae compx Not Reported Not Detected (NotDetected); Efaecalis Not Reported Not Detected (NotDetected); Efaecium Not Reported Not Detected (NotDetected); Enterobacterales DETECTED (NotDetected); Enterobacterales Not Reported DETECTED (NotDetected); Escherichia coli Not Reported Not Detected (NotDetected); H influenzae Not Reported Not Detected (NotDetected); IMP Resistant Gene Not Detected (NotDetected); K aerogenes Not Reported Not Detected (NotDetected); KPC Resistant Gene Not Detected (NotDetected); Koxytoca Not Reported Not Detected (NotDetected); Kpneumoniae grp Not Reported DETECTED (NotDetected); Lmonocyt Not Reported Not Detected (NotDetected); N meningitidis Not Reported Not Detected (NotDetected); NDM Resistant Gene Not Detected (NotDetected); OXA 48 Like Resistant Gene Not Detected (NotDetected); P aeruginosa Not Reported Not Detected (NotDetected); Proteus spp Not Reported Not Detected (NotDetected); Salmonella spp Not Reported Not Detected (NotDetected); Staph lugdunensis Not Reported Not Detected (NotDetected); Staph spp. Not Reported Not Detected (NotDetected); Staphaureus Not Reported Not Detected (NotDetected); Staphepi Not Reported Not Detected (NotDetected); Stenmaltophilia Not Reported Not Detected (NotDetected); Strep agal(GrpB) Not Reported Not Detected (NotDetected); Strep pneum Not Reported Not Detected (NotDetected); Strep pyog (GrpA) Not Reported Not Detected (NotDetected); Strep spp Not Reported Not Detected (NotDetected); VIM Resistant Gene Not Detected (NotDetected); mcr-1 Colistin Resistant Gene Not Detected (NotDetected)
[2025-02-20 15:47] LABS: Klebsiella pneumoniae group DETECTED (NotDetected)
[2025-02-20] MEDS ORDERED: Nursing to Pharmacy Communication SCH (19:00)
[2025-02-21] MEDS: cefTRIAXone SODIUM 2,000 MG/50 ML BAG IV SCH (02:08)
[2025-02-21 06:44] LABS: Hematocrit (blood only) 32.4 % (37.0-47.0); Hemoglobin 10.3 g/dl (12.0-16.0); Immature Granulocytes # (auto) 0.04 K/uL (0.01-0.20); Immature Granulocytes % (auto) 0.4 %; Mean Corpuscular Hemoglobin 29.9 pg (25.0-34.0); Mean Corpuscular Volume 93.9 fL (80.0-100.0); Platelet Count 254 K/uL (130-400); RDW Standard Deviation 47.7 fL (36.4-46.3); Red Blood Count 3.45 M/uL (4.20-5.40); White Blood Count 10.43 K/ul (4.8-10.8)
[2025-02-21 07:07] LABS: Anion Gap 3.0 (3-11); Blood Urea Nitrogen 19.0 mg/dl (6-23); Calcium 8.0 mg/dl (8.6-10.3); Carbon Dioxide 26.0 mmol/L (21-32); Chloride 110.0 mmol/L (98-107); Creatinine Clr Calc Pharmacy 50.7 ml/min; Glucose 67.0 mg/dl (70-99(Fasting)); Magnesium 2.1 mg/dl (1.7-2.4); Potassium 4.4 mmol/L (3.5-5.1); Sodium 139.0 mmol/L (136-145)
[2025-02-21] MEDS: SPIRONOLACTONE 25 MG TAB PO SCH (09:35)
[2025-02-21] MEDS: FUROSEMIDE 20 MG TAB PO SCH (09:35)
[2025-02-21] MEDS: POTASSIUM CHLORIDE CRTAB 20 MEQ TABCR PO SCH (09:36)
--- NOTE | 2025-02-21 11:24 | Hospitalist Progress Note ---
Date of Service February 21, 2025 Assessment & Plan (1) Bacteremia: (2) UTI (urinary tract infection): (3) Hypoxia: (4) Nausea, vomiting, and diarrhea: (5) Hx of CABG: Plan Mrs. Cobb is an 85-year-old female with a history of type II DM, CABG in PCI denies clinical history of heart failure statin intolerance, GERD who presented with shaking chills abdominal pain nausea/vomiting after eating crab cakes. #Bacteremia | UTI UA infected appearing on arrival Patient was not septic on arrival; VSS relatively stable throughout hospital course Leukocytosis trend 13 -> 17 -> 10 A/P CT did note small focus of air in the urinary bladder No recent catheter or procedures, but she does use a pessary for urinary incontinence; suspect bacteria may have been introduced via pessary Follows with clinic in [place] for PHONE OPERATOR care (she is unsure of which provide r) Will need to have close follow-up with PHONE OPERATOR upon discharge Clinically, she denies dysuria, polyuria, hesitancy, or burning with urination UCx resulted on 02/21 growing pansensitive Klebsiella pneumonia Preliminary blood culture on 02/20 growing gram-negative bacilli on Cx x 2, Klebsiella pneumoniae on BioFire Continue ceftriaxone 2000 mg IV q24h #Hypoxia Patient reports she developed a dry cough the evening of 02/20 SpO2 85% on RA Now requiring supplemental oxygen at 3L NC Patient does not use submental oxygen at baseline CXR revealed pulmonary vascular congestion Additional dose of Lasix 20 mg x 1 given on 02/21 Titrate supplemental oxygen as needed to maintain SpO2 >94% Continuous pulse oximetry #Intractable N/V/D No transaminitis Tolerated clear liquid diet on 02/20, advance to T2DM diet on 02/21 Initially, patient believed her symptoms were due to "food poisoning" on 02/19 However, she has had intermittent diarrhea over the past several days No blood in stool, no recent antibiotic use Stool PCR testing was initially ordered, but discontinued once patient's diarrhea resolved IV antiemetics PRN Gallbladder ultrasound revealed no sonographic evidence of acute cholecystitis; no biliary duct dilation or obstruction #Hypomagnesemia (resolved) Magnesium 1.3 on arrival Magnesium 2.1 s/p repletion #CAD | H/o CABG and PCI Denies chest pain, chest pressure, shortness of breath, difficulty breathing Denies clinical history of CHF but is on Lasix daily Past history of CABG, PCI x 2, had a cath eval for potential need for third stent in [place] however did not require this Continue isosorbide, aspirin daily EKG on arrival did reveal inverted T waves on arrival; repeat EKG on 02/20 with some improvement in T wave abnormalities #Type II DM A1c 9.5% on 02/20/2025 Hold metformin, glimepiride Lantus dose reduced from 28u -> 20u in the setting of poor p.o. intake SSI with target BSG range 110-140mg/dL, CF 40, carb ratio 20 T2DM diet BSG ACHS Adjust regimen as needed #HTN | LE edema Continue carvedilol, losartan Patient denies prior history of CHF, but given pulmonary vascular congestion with fluids + h/o CABG, suspect some component of CHF Continue Lasix, spironolactone Monitor volume status daily Disposition: Continued stay on MedSurg VTE PPx: Lovenox 40 mg SQ q24h Spoke on the phone with patient's daughter (June) on 02/21 and provided update regarding labs/imaging/hospitalization status. Daughter lives in [place]. She reports that her mom was visiting her this week for the holiday season, but normally she resides in [place]. Daughter reconfirms that the patient has an upcoming appointment with her tin pot operator (Dr. Ellis) the first week of March, as well as an appointment with her PCP (Dr. Alberts) in late March. She is unsure who the patient follows with for PHONE OPERATOR care. Admission and Anticipated Discharge Date Admission Date: February 20, 2025 Subjective Mrs. Cobb is reading a book in her chair this morning on "[place]: Then and now" that was given to her by her daughter. She is in good spirits this morning. She reports that she slept well, and has been eating and drinking okay. No BM yet today. Overall, she is feeling better than the day before, but does report she developed a new dry cough last night. She is also somewhat concerned, as she has been requiring supplemental oxygen throughout her hospitalization, and normally she does not use supplemental oxygen at baseline. Does use a CPAP at night. In regard to her urinary symptoms, she reports no burning with urination, blood in your stool, or abdominal pain. Patient follows with [facility] for PHONE OPERATOR care. She reports that she has not had any recent PHONE OPERATOR or urologic procedures, and has not had any Koch's placed in the past. She does use a pessary for urinary incontinence, and was told to use white vinegar and water for cleaning it. She also reports she has been using a gel on the pessary, but is unable to identify which gel. ROS: Patient endorses dry cough. Patient denies fever, chills, night sweats, dizziness/lightheadedness with ambulation, chest pain, SOB, chest palpitations, pleuritic CP, RUQ abdominal pain, nausea or vomiting in the hospital (resolved), diarrhea, blood in the urine or stool, burning urination, or dysuria. Review of Systems Review of Systems: See HPI above Physical Exam Physical Exam: General: no acute distress; pleasant affect; sitting upright, reading in her chair; non-toxic appearing; well-nourished; cooperative; SpO2 97% on 3L NC HEENT: normocephalic, atraumatic; no scleral icterus; PERRLA; vision and hearing grossly intact Neck: supple; trachea midline Skin: warm, dry without signs of tenting; no cyanosis; no rashes, bruising, lesions, or erythema noted CV: chest wall NTP; RRR; S1/S2 normal; no murmurs/rubs/gallops; pulses intact and symmetric at radial, DP, and PT Lungs: Dry cough; no acute respiratory distress; symmetrical chest wall expansion; clear breath sounds across all lung [place] w/o adventitious sounds; no wheezing ABD: Soft, NTP; no rashes or bruising appreciated on the abdomen or flanks bilaterally BS present; no rebound/guarding; no distention MSK: no tics or fasciculations; no edema noted in the LEs b/l, nonerythematous (stockings in place) Neuro: A&Ox3; normal mood and affect; fluent speech; no focal deficits; s ensation intact and symmetric in lower extremities bilaterally Results & Data Results & Data Vital Signs (Past 12 Hours) Vital Signs Temp Pulse Resp BP BP Pulse Ox O2 Del Method 02/21/25 09:33 52 L 137/79 02/21/25 07:25 36.6 C 54 L 16 131/67 97 Nasal Cannula 02/21/25 07:20 Nasal Cannula O2 Flow Rate 02/21/25 09:33 02/21/25 07:25 3.0 02/21/25 07:20 3 PG Care Time/CCT Total # of Minutes Spent Total Time Spent with Patient: Total time spent is greater than 50% in coordination of care (as documented) at patient's floor/unit and/or counseling patient: C[place] [address] SUB INP/OBS CARE 3/50MIN Patient Type Established History Comprehensive Exam Comprehensive Medical Decision Making High Complexity Diagnoses Bacteremia R78.81 UTI (urinary tract infection) N39.0 Hypoxia R09.02 Nausea, vomiting, and diarrhea R11.2; R19.7 Hx of CABG Z95.1
--- NOTE | 2025-02-21 12:08 | XRay Report ---
XR chest 1V portable CLINICAL HISTORY: Hypoxia, cough. COMPARISON STUDY: No previous studies for comparison. FINDINGS: Lung volumes are normal. There is no pneumothorax or pleural effusion. Status post median s ternotomy. There is mild cardiomegaly. There is pulmonary vascular congestion. There is no consolidat ion to suggest pneumonia. IMPRESSION: 1. Cardiomegaly with pulmonary vascular congestion. 2. No consolidation to suggest pneumonia. ACT 112: Negative or not required by law. Electronically signed by: Desmond Clayton M.D. 02/21/2025 12:07 PM
[2025-02-21] MEDS: FUROSEMIDE 20 MG TAB PO STA (12:35)
[2025-02-21] MEDS: SENNA 8.6 MG TAB PO STA (22:32)
[2025-02-22 06:03] LABS: Hematocrit (blood only) 33.7 % (37.0-47.0); Hemoglobin 10.6 g/dl (12.0-16.0); Immature Granulocytes # (auto) 0.04 K/uL (0.01-0.20); Immature Granulocytes % (auto) 0.5 %; Mean Corpuscular Hemoglobin 29.3 pg (25.0-34.0); Mean Corpuscular Volume 93.1 fL (80.0-100.0); Platelet Count 269 K/uL (130-400); RDW Standard Deviation 46.1 fL (36.4-46.3); Red Blood Count 3.62 M/uL (4.20-5.40); White Blood Count 8.05 K/ul (4.8-10.8)
[2025-02-22 06:20] LABS: Anion Gap 5.0 (3-11); Blood Urea Nitrogen 20.0 mg/dl (6-23); Calcium 8.6 mg/dl (8.6-10.3); Carbon Dioxide 26.0 mmol/L (21-32); Chloride 108.0 mmol/L (98-107); Creatinine Clr Calc Pharmacy 55.2 ml/min; Glucose 101.0 mg/dl (70-99(Fasting)); Potassium 4.5 mmol/L (3.5-5.1); Sodium 139.0 mmol/L (136-145)
[2025-02-22] MEDS: FUROSEMIDE 20 MG TAB PO ONE (10:51)
--- NOTE | 2025-02-22 13:36 | Electrocardiogram Report ---
Test Reason : Blood Pressure : */* mmHG Vent. Rate : 60 BPM Atrial Rate : 60 BPM P-R Int : 198 ms QRS Dur : 90 ms QT Int : 410 ms P-R-T Axes : 38 25 118 degrees QTcB Int : 410 ms Normal sinus rhythm Nonspecific T wave abnormality Abnormal ECG When compared with ECG of 19-Feb-2025 23:10, (unconfirmed) Nonspecific T wave abnormality has replaced inverted T waves in Lateral leads Confirmed by Ba Fitzpatrick ([id number]) on 02/22/2025 1:35:45 PM Referred By: REFERRED SELF Confirmed By: Ba Fitzpatrick
[2025-02-22] MEDS: CETIRIZINE HCL 10 MG TABLET PO ONE (14:49)
--- NOTE | 2025-02-22 15:58 | XCELERA ---
[id number]
--- NOTE | 2025-02-22 16:58 | Hospitalist Progress Note ---
Date of Service February 22, 2025 Assessment & Plan (1) Bacteremia: (2) UTI (urinary tract infection): (3) Hypoxia: (4) Nausea, vomiting, and diarrhea: (5) Hx of CABG: (6) Acute heart failure with preserved ejection fraction (HFpEF): Plan Mrs. Cobb is an 85-year-old female with a history of type II DM, CABG in PCI denies clinical history of heart failure statin intolerance, GERD who presented with shaking chills abdominal pain nausea/vomiting after eating crab cakes. #Bacteremia | UTI UA infected appearing on arrival Patient was not septic on arrival; VSS relatively stable throughout hospital course Leukocytosis trend 13 -> 17 -> 10 -> 8 A/P CT did note small focus of air in the urinary bladder No recent catheter or procedures, but she does use a pessary for urinary incontinence; suspect bacteria may have been introduced via pessary Follows with clinic in [place] for SEWER CLEANER care (she is unsure of which provider) Will need to have close follow-up with SEWER CLEANER upon discharge Clinically, she denies dysuria, polyuria, hesitancy, or burning with urination UCx resulted on 02/21 growing pansensitive Klebsiella pneumonia Preliminary blood culture on 02/20 growing gram-negative bacilli on Cx x 2, Klebsiella pneumoniae on Bio[employer] Continue ceftriaxone 2000 mg IV q24h #Hypoxia | Acute HFpEF From a bacteremic standpoint, patient has been generally improving However, patient developed a dry cough the evening of 02/20 Episode of SpO2 85% on RA Nursing also reported pulse ox down to 77% on room air after taking shower Now requiring supplemental oxygen at 3L NC Patient does not use supplemental oxygen at baseline CXR revealed pulmonary vascular congestion Ambulatory pulse ox trial on 02/22: 90 to 94% on 2L NC, and patient reportedly had to "catch her breath" several times while walking Echocardiogram on 02/22 revealed LVEF at 50 to 55% with grade 1 diastolic dysfunction Hold Lasix 20 mg p.o. daily Increase to Lasix 40 mg IV daily starting on 02/23 Continue spironolactone Titrate supplemental oxygen as needed to maintain SpO2 >94% Hopeful discharge home once patient is no longer requiring supplemental oxygen Continuous pulse oximetry #Intractable N/V/D No transaminitis Tolerated clear liquid diet on 02/20, advance to T2DM diet on 02/21 Initially, patient believed her symptoms were due to "food poisoning" on 02/19 However, she has had intermittent diarrhea over the past several days No blood in stool, no recent antibiotic use Stool PCR testing was initially ordered, but discontinued once patient's diarrhea resolved IV antiemetics PRN Gallbladder ultrasound revealed no sonographic evidence of acute cholecystitis; no biliary duct dilation or obstruction #Hypomagnesemia (resolved) Magnesium 1.3 on arrival Magnesium 2.1 s/p repletion #CAD | H/o CABG and PCI Denies chest pain, chest pressure, shortness of breath, difficulty breathing Denies clinical history of CHF but is on Lasix daily Past history of CABG, PCI x 2, had a cath eval for potential need for third stent in [place] however did not require this Continue isosorbide, aspirin daily EKG on arrival did reveal inverted T waves on arrival; repeat EKG on 02/20 with some improvement in T wave abnormalities #Type II DM A1c 9.5% on 02/20/2025 Hold metformin, glimepiride Lantus dose reduced from 28u -> 20u in the setting of poor p.o. intake SSI with target BSG range 110-140mg/dL, CF 40, carb ratio 20 T2DM diet BSG ACHS Adjust regimen as needed #HTN Continue carvedilol, losartan Disposition: Continued stay on MedSurg VTE PPx: Lovenox 40 mg SQ q24h Spoke on the phone with patient's daughter (June) on 02/21 and provided update regarding labs/imaging/hospitalization status. Daughter lives in [place]. She reports that her mom was visiting her this week for the holiday season, but normally she resides in [place]. Daughter reconfirms that the patient has an upcoming appointment with her senior web developer (Dr. Ellis) the first week of March, as well as an appointment with her PCP (Dr. Alberts) in late March. Patient follows with Haylee Sanchez DO at [facility] Obst/Director Of Instruction - [place] (patient requesting records be sent there upon discharge) Admission and Anticipated Discharge Date Admission Date: February 20, 2025 Subjective Mrs. Cobb is doing well today. She slept well, and reports that using her CPAP last night helped. She has been eating and drinking okay, and does report that she has been "drinking too much water". She denies any respiratory complaints at this time, but does note a dry cough as well as a "raspy/rattle" in her throat. While she denies dyspnea on exertion, patient also reports she has been getting "lazy" over the past several weeks. She ambulates with a cane at baseline. Patient reports no bowel movements since being in the hospital. ROS: Patient dry cough dry cough. Patient denies fever, chills, chest pain, SOB, VELASCO, abdominal pain, N/V/D, burning with urination, swelling in the legs, or blood in your stool. Review of Systems Review of Systems: See HPI above Physical Exam Physical Exam: General: no acute distress; pleasant affect; sitting upright, reading in her chair; non-toxic appearing; well-nourished; cooperative; SpO2 95% on 2L NC HEENT: normocephalic, atraumatic; no scleral icterus; PERRLA; vision and hearing grossly intact Neck: supple; trachea midline Skin: warm, dry without signs of tenting; no cyanosis; no rashes, bruising, l esions, or erythema noted CV: chest wall NTP; RRR; S1/S2 normal; no murmurs/rubs/gallops; pulses intact and symmetric at radial, DP, and PT Lungs: Dry cough; no acute respiratory distress; symmetrical chest wall expansion; clear breath sounds across all lung [place] w/o adventitious sounds; no wheezing ABD: Soft, NTP; no rashes or bruising appreciated on the abdomen or flanks bilaterally BS present; no rebound/guarding; no distention MSK: no tics or fasciculations; no edema noted in the LEs b/l, nonerythematous (stockings in place) Neuro: A&Ox3; normal mood and affect; fluent speech; no focal deficits; sensation intact and symmetric in lower extremities bilaterally Results & Data Results & Data Vital Signs (Past 12 Hours) Vital Signs Temp Pulse Pulse Resp BP Pulse Ox Pulse Ox 02/22/25 13:53 36.6 C 58 L 22 128/79 96 02/22/25 11:20 70 90 02/22/25 08:28 57 L 144/74 H 02/22/25 07:18 36.8 C 55 L 20 164/79 H 95 02/22/25 07:15 O2 Del Method O2 Del Method O2 Flow Rate 02/22/25 13:53 Nasal Cannula 2 02/22/25 11:20 Nasal Cannula 2 02/22/25 08:28 02/22/25 07:18 Nasal Cannula 2 02/22/25 07:15 Nasal Cannula PG Care Time/CCT Total # of Minutes Spent Total Time Spent with Patient: Total time spent is greater than 50% in coordination of care (as documented) at patient's floor/unit and/or counseling patient: Coding [place] [address] SUB INP/OBS CARE 3/50MIN Patient Type Established History Comprehensive Exam Comprehensive Medical Decision Making High Complexity Diagnoses Bacteremia R78.81 UTI (urinary tract infection) N39.0 Hypoxia R09.02 Nausea, vomiting, and diarrhea R11.2; R19.7 Hx of CABG Z95.1 Acute heart failure with preserved ejection fraction (HFpEF) I50.31
[2025-02-22] MEDS: POLYETHYLENE (MIRALAX) 17 GM PACK PO PRN (20:21)
--- NOTE | 2025-02-22 22:08 | Electrocardiogram Report ---
Test Reason : Blood Pressure : */* mmHG Vent. Rate : 75 BPM Atrial Rate : 75 BPM P-R Int : 188 ms QRS Dur : 84 ms QT Int : 368 ms P-R-T Axes : 25 23 194 degrees QTcB Int : 410 ms Normal sinus rhythm with sinus arrhythmia T wave abnormality, consider inferior ischemia Abnormal ECG No previous ECGs available Confirmed by Ba Fitzpatrick ([id number]) on 02/22/2025 10:08:41 PM Referred By: REFERRED SELF Confirmed By: Ba Fitzpatrick
[2025-02-23 06:30] LABS: Hematocrit (blood only) 33.3 % (37.0-47.0); Hemoglobin 10.5 g/dl (12.0-16.0); Immature Granulocytes # (auto) 0.03 K/uL (0.01-0.20); Immature Granulocytes % (auto) 0.4 %; Mean Corpuscular Hemoglobin 29.3 pg (25.0-34.0); Mean Corpuscular Volume 93.0 fL (80.0-100.0); Platelet Count 293 K/uL (130-400); RDW Standard Deviation 46.0 fL (36.4-46.3); Red Blood Count 3.58 M/uL (4.20-5.40); White Blood Count 7.72 K/ul (4.8-10.8)
[2025-02-23 07:12] LABS: Anion Gap 6.0 (3-11); Blood Urea Nitrogen 23.0 mg/dl (6-23); Calcium 8.5 mg/dl (8.6-10.3); Carbon Dioxide 29.0 mmol/L (21-32); Chloride 105.0 mmol/L (98-107); Creatinine Clr Calc Pharmacy 46.9 ml/min; Glucose 129.0 mg/dl (70-99(Fasting)); Potassium 4.5 mmol/L (3.5-5.1); Sodium 140.0 mmol/L (136-145)
[2025-02-23] MEDS: FUROSEMIDE 40 MG/4 ML VIAL IV SCH (08:32)
--- NOTE | 2025-02-23 14:04 | Hospitalist Progress Note ---
"Date of Service February 23, 2025 Assessment & Plan (1) Bacteremia: (2) UTI (urinary tract infection): (3) Hypoxia: (4) Nausea, vomiting, and diarrhea: (5) Hx of CABG: (6) Acute heart failure with preserved ejection fraction (HFpEF): Plan Mrs. Cobb is an 85-year-old female with a history of type II DM, CABG in PCI denies clinical history of heart failure statin intolerance, GERD who presented with shaking chills abdominal pain nausea/vomiting after eating crab cakes. #Bacteremia | UTI UA infected appearing on arrival Leukocytosis resolved A/P CT did note small focus of air in the urinary bladder No recent catheter or procedures, but she does use a pessary for urinary incontinence; suspect bacteria may have been introduced via pessary Follows with clinic in [place] for SENIOR GL ACCOUNTANT care (she is unsure of which provider) --> Will need to have close follow-up with SENIOR GL ACCOUNTANT upon discharge UCx resulted on 02/21 growing pansensitive Klebsiella pneumonia Preliminary blood culture on 02/20 growing gram-negative bacilli on Cx x 2, Klebsiella pneumoniae on BioFire Continue ceftriaxone 2000 mg IV q24h --> will transition to PO on discharge. #Hypoxia | Acute HFpEF However, patient developed a dry cough the evening of 02/20 & decrease in O2 sat to mid 80s --> was requiring 3L of oxygen via NC (02/20) Baseline room air CXR revealed pulmonary vascular congestion Echocardiogram on 02/22 revealed LVEF at 50 to 55% with grade 1 diastolic dys function s/p 1 dose of 40mg IV Lasix 02/23 w/ good urine output per patient. Can resume 20mg PO Lasix in AM of 02/24 2 step completed 02/23 - does not require oxygen on discharge, is back to room air. Continue spironolactone #Intractable N/V/D - resolved advanced to T2DM diet on 02/21 IV antiemetics PRN Gallbladder ultrasound revealed no sonographic evidence of acute cholecystitis; no biliary duct dilation or obstruction #Hypomagnesemia (resolved) Magnesium 1.3 on arrival Magnesium 2.1 s/p repletion #CAD | H/o CABG and PCI Denies clinical history of CHF but is on Lasix daily Past history of CABG, PCI x 2, had a cath eval for potential need for third stent in [place] however did not require this Continue isosorbide, aspirin daily EKG on arrival did reveal inverted T waves on arrival; repeat EKG on 02/20 with some improvement in T wave abnormalities #Type II DM A1c 9.5% on 02/20/2025 Hold metformin, glimepiride Lantus dose reduced from 28u -> 20u in the setting of poor p.o. intake SSI with target BSG range 110-140mg/dL, CF 40, carb ratio 20 T2DM diet BSG ACHS Adjust regimen as needed #HTN Continue carvedilol, losartan Disposition: Continued stay on MedSurg VTE PPx: Lovenox 40 mg SQ q24h updated daughter via phone 02/23 --> anticipate discharge home 02/24. Patient follows with Haylee Sanchez DO at [facility] Obst/[employer] [facility] (patient requesting records be sent there upon discharge) Admission and Anticipated Discharge Date Admission Date: February 20, 2025 Xin Putnam was seen and examined this morning. States she is feeling a lot better today. She states she has been having good urine output since her IV dose of Lasix. Denied any SOB. Reports she is ready to be discharged. Physical Exam Physical Exam: General: no acute distress; non-toxic appearing; well-nourished; cooperative HEENT: normocephalic, atraumatic; no scleral icterus; PERRLA w/ EOMs intact; vision and hearing grossly intact Neck: trachea midline Skin: warm, dry without signs of tenting; no cyanosis; no rashes, bruising, lesions, or erythema noted CV: RRR; S1/S2 normal; no murmurs/rubs/gallops Lungs: no acute respiratory distress; symmetrical chest wall expansion; clear breath sounds across all lung [place] w/o adventitious sounds; no wheezing MSK: no tics or fasciculations; no edema noted in the LEs b/l, nonerythematous Neuro: A&Ox3; normal mood and affect; fluent speech; no focal deficits Results & Data Results & Data Vital Signs (Past 12 Hours) Vital Signs Temp Pulse Pulse Pulse Pulse Resp Resp 02/23/25 11:48 95 H 81 18 02/23/25 07:31 36.3 C L 59 L 18 02/23/25 07:15 02/23/25 07:15 02/23/25 02:16 59 L 22 Resp BP Pulse Ox Pulse Ox Pulse Ox Pulse Ox O2 Del Method 02/23/25 11:48 16 90 94 02/23/25 07:31 189/78 H 97 Nasal Cannula 02/23/25 07:15 Nasal Cannula 02/23/25 07:15 96 02/23/25 02:16 91 O2 Del Method O2 Flow Rate O2 Flow Rate 02/23/25 11:48 02/23/25 07:31 1 02/23/25 07:15 1 02/23/25 07:15 Nasal Cannula 1 02/23/25 02:16 5 PG Care Time/CCT Total # of Minutes Spent Total Time Spent with Patient: Total time spent is greater than 50% in coordination of care (as documented) at patient's floor/unit and/or counseling patient: Coding Level of Care Code 77118 SUB INP/OBS CARE 3/50MIN Diagnoses Bacteremia R78.81 UTI (urinary tract infection) N39.0 Hypoxia R09.02 Nausea, vomiting, and diarrhea R11.2; R19.7 Hx of CABG Z95.1 Acute heart failure with preserved ejection fraction (HFpEF) I50.31"
[2025-02-24 06:37] LABS: Hematocrit (blood only) 37.9 % (37.0-47.0); Hemoglobin 12.3 g/dl (12.0-16.0); Mean Corpuscular Hemoglobin 29.4 pg (25.0-34.0); Mean Corpuscular Volume 90.5 fL (80.0-100.0); Platelet Count 364 K/uL (130-400); RDW Standard Deviation 44.2 fL (36.4-46.3); Red Blood Count 4.19 M/uL (4.20-5.40); White Blood Count 8.54 K/ul (4.8-10.8)
[2025-02-24 06:54] LABS: Anion Gap 8.0 (3-11); Blood Urea Nitrogen 28.0 mg/dl (6-23); Calcium 9.3 mg/dl (8.6-10.3); Carbon Dioxide 27.0 mmol/L (21-32); Chloride 103.0 mmol/L (98-107); Creatinine Clr Calc Pharmacy 46.0 ml/min; Glucose 180.0 mg/dl (70-99(Fasting)); Potassium 4.8 mmol/L (3.5-5.1); Sodium 138.0 mmol/L (136-145)
[2025-02-24 07:35] VITALS: TEMP 97.9
--- NOTE | 2025-02-24 08:51 | Discharge Summary ---
"Discharge Summary Date of Service February 24, 2025 Principal Dx & Hospital Course #1 = Principal Diagnosis (1) Bacteremia: (2) UTI (urinary tract infection): (3) Hypoxia: (4) Nausea, vomiting, and diarrhea: (5) Hx of CABG: (6) Acute heart failure with preserved ejection fraction (HFpEF): Plan Mrs. Cobb is an 85-year-old female with a history of type II DM, CABG in PCI denies clinical history of heart failure statin intolerance, GERD who presented with shaking chills abdominal pain nausea/vomiting after eating crab cakes. #Bacteremia | UTI UA infected appearing on arrival Leukocytosis resolved A/P CT did note small focus of air in the urinary bladder No recent catheter or procedures, but she does use a pessary for urinary incontinence; suspect bacteria may have been introduced via pessary Follows with clinic in [place] for [facility] [facility] [employer] care (she is unsure of which provider) --> Will need to have close follow-up with [employer] upon discharge UCx resulted on 02/21 growing pansensitive Klebsiella pneumonia Preliminary blood culture on 02/20 growing gram-negative bacilli on Cx x 2, Klebsiella pneumoniae on [employer] s/p ceftriaxone 2000 mg IV q24h --> transitioned to Cipro BID x 2 additional days on dc. #Hypoxia | Acute HFpEF However, patient developed a dry cough the evening of 02/20 & decrease in O2 sat to mid 80s --> was requiring 3L of oxygen via NC (02/20) Baseline room air CXR revealed pulmonary vascular congestion Echocardiogram on 02/22 revealed LVEF at 50 to 55% with grade 1 diastolic dysfunction s/p 1 dose of 40mg IV Lasix 02/23 w/ good urine output per patient. Can resume 20mg PO Lasix 2 step completed 02/23 - does not require oxygen on discharge, is back to room air. Continue spironolactone #Intractable N/V/D - resolved advanced to T2DM diet on 02/21 Gallbladder ultrasound revealed no sonographic evidence of acute cholecystitis; no biliary duct dilation or obstruction #Hypomagnesemia (resolved) Magnesium 1.3 on arrival Magnesium 2.1 s/p repletion #CAD | H/o CABG and PCI Denies clinical history of CHF but is on Lasix daily Past history of CABG, PCI x 2, had a cath eval for potential need for third stent in [place] however did not require this Continue isosorbide, aspirin daily EKG on arrival did reveal inverted T waves on arrival; repeat EKG on 02/20 with some improvement in T wave abnormalities #Type II DM A1c 9.5% on 02/20/2025 resume outpatient regimen #HTN Continue carvedilol, losartan patient discharged to home 02/24. Admission HPI Per Admitting Provider Vadim is an 85-year-old female visiting from out of town with a past medical h istory of hypertension, type II DM, CAD/CABG who presents with nausea/vomiting/diarrhea after lunch today. Patient notes she had some crab cakes and then had nausea/vomiting shortly after this. She has had chills throughout the day. She has had epigastric and right upper quadrant discomfort. She has a leukocytosis on admission and a distended stone filled gallbladder on CT. She is recommended for admission for evaluation of potential acute cholecystitis. Differential includes food poisoning. She has a infected versus contaminated UA, she denies urinary symptoms. She is seen at the bedside. She went out for dinner and had a crab cake and puff potatoes. Very shortly after eating, and noting it was fairly spicy, had an off stomach feeling and felt clammy, shakey, and cold. +nausea, 2 episodes of vomiting with mostly the crab food she had eating. 2 episodes of diarrhea. Denies abdominal pain. Has had intermittent pain with meals, but has not noticed whether particular meals set it off. Salad gives her loose bowls. Has not had problems with greasy foods/meats but does nto eat much of this. Does like cheese, no pain with this. BMs generally regular 1-2x per day. Denies white/can colored/martínez stools. DId have shaking chills today shortly before vomiting No dysuria. Does wear a pessary, has noticed some pressure with this but no other urinary symptoms. No polyuria. No chest pain, chest pressure, or dyspnea. Hx CABG at age 72. Also has 2 stents. Was going to have a 3rd stent but on last PCI did not need it. 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 Was done at [facility]. Denies history of CHF No chest pain recently. Medical History: Reviewed Medications: Reviewed Surgical History: Reviewed Family history: Reviewed Allergies: Reviewed. Myalgias to statins. Also w nosebleeds to statins. Social History: NO tobacco product use. No ETOH use. Code Status: DNR/DNI Discharge Exam General: no acute distress; non-toxic appearing; well-nourished; cooperative HEENT: normocephalic, atraumatic; no scleral icterus; PERRLA w/ EOMs intact; vision and hearing grossly intact Neck: trachea midline Skin: warm, dry without signs of tenting; no cyanosis; no rashes, bruising, lesions, or erythema noted Lungs: no acute respiratory distress; symmetrical chest wall expansion MSK: no edema noted in the LEs b/l, nonerythematous Neuro: A&Ox3; normal mood and affect; fluent speech; no focal deficits Discharge Plan Discharge Items Patient Disposition: Home - Self-Care Reason For Visit: ABDOMINAL PAIN, N/V Discharge Diagnosis: UTI, bacteremia Condition on Discharge: Good Activity: Resume your previous activity Non-emergency contact: Primary Care Provider Call non-emergency contact if: you have any medication questions, your symptoms worsen and you have a fever Follow-up/Referrals: JEREMÍAS KO [Other] Diet: Carb Consistent or DM2, Heart Healthy and Low Sodium (2gm) Addtl Attending Provider Instructions: Ms. Cobb, You were recently hospitalized for abdominal pain, nausea/vomiting. You were found to have a UTI that spread into your bloodstream causing bacteremia. You were treated with IV antibiotics and had improvement. Please see recommendations below regarding your discharge. Please take Ciprofloxacin twice daily for the next 2 days starting on 7/9 in the AM. Please administer with food to avoid GI upset. You were given a dose of Diflucan to treat for a yeast infection prior to discharge. Please resume your outpatient medications as previously prescribed. Please follow up closely with your back tender insulation board to evaluate your pessary. Please follow up with your PCP within 1-2 weeks of discharge. If you develop any urinary symptoms, fevers, chills, chest pain, or shortness of breath please report back to the ER for further care. Best of luck! Ophelia Nicole PA-C Pending Studies at Discharge: No Stand-Alone Forms: My [employer], Smoking Cessation Medications and DC Order Prescriptions: New ciprofloxacin HCl [Cipro] 500 mg tablet 500 mg PO BID Qty: 4 0RF (DME) OneTouch Verio test strips Strip See Rx Instructions .Route Qty: 100 0RF Rx Instructions: As directed Continued isosorbide mononitrate 60 mg tablet extended release 24 hr 60 mg PO DAILY potassium chloride 20 mEq tablet,ER particles/crystals 20 meq PO DAILY metformin 1,000 mg tablet 1,000 mg PO BID glimepiride 4 mg tablet 4 mg PO BIDM Rx Instructions: take with am and pm meals losartan 100 mg tablet 100 mg PO DAILY carvedilol 25 mg tablet 25 mg PO BID cyanocobalamin (vitamin B-12) 1,000 mcg tablet 1,000 mcg PO DAILY spironolactone 25 mg tablet 12.5 mg PO DAILY Rx Instructions: 1/2 tablet dose per pt furosemide 20 mg tablet 20 mg PO .EVERY 24 HOURS insulin glargine U-300 conc [Tou[employer]o SoloStar U-300 Insulin] 300 unit/mL (1.5 mL) insulin pen 28 unit SUBCUT HS nitroglycerin 0.4 mg tablet, sublingual 0.4 mg sublingual UD PRN (Reason: Chest Pain) acetaminophen 500 mg Tablet 500 mg PO BID aspirin 81 mg Tablet 81 mg PO DAILY acidophilus-pectin, citrus 100 million cell-10 mg Capsule 1 cap PO DAILY Discharge Orders: Discharge Order (Routine); Ordered 02/24/25 Ordered By: Ophelia Morse/Other Patient Handouts: Managing Type 2 Diabetes Admission Data Admit Date/Time: 02/20/25 11:04 Attending Provider: Nelson Madden Admit Provider: Teja Banegas Primary Care Provider: JEREMÍAS KO Other Providers: Teja Banegas Other Interventions: Discharge Summary Assessment (RN) Last Done: 02/24/25 10:46 Hospital Stay Data Consultations 02/20/25 01:32 ED Decision to Admit Stat Diagnostic Imagining Performed 02/19/25 23:01 CT Abd and Pelvis [CT abd pelvis wo con] Stat 02/20/25 01:24 US gallbladder Stat Discharge Instructions Given to Patient (Per Discharging Provider) Ms. Cobb, You were recently hospitalized for abdominal pain, nausea/vomiting. You were found to have a UTI that spread into your bloodstream causing bacteremia. You were treated with IV antibiotics and had improvement. Please see recommendations below regarding your discharge. Please take Ciprofloxacin twice daily for the next 2 days starting on 02/25 in the AM. Please administer with food to avoid GI upset. You were given a dose of Diflucan to treat for a yeast infection prior to discharge. Please resume your outpatient medications as previously prescribed. Please follow up closely with your back tender insulation board to evaluate your pessary. Please follow up with your PCP within 1-2 weeks of discharge. If you develop any urinary symptoms, fevers, chills, chest pain, or shortness of breath please report back to the ER for further care. Best of luck! Ophelia Nicole PA-C Total Time Total Time Spent Total Time Spent (In Minutes): 40 Total Time Includes: Examination of the Patient, Discharge Planning and Medication Reconciliation Coding Level of Care Code 26446 INP/OBS DISCH >30 MIN Diagnoses Bacteremia R78.81 UTI (urinary tract infection) N39.0 Hypoxia R09.02 Nausea, vomiting, and diarrhea R11.2; R19.7 Hx of CABG Z95.1 Acute heart failure with preserved ejection fraction (HFpEF) I50.31"
[2025-02-24 08:57] VITALS: RESP 20
[2025-02-24 09:49] VITALS: BP 131/67; PULSE 70
[2025-02-24] MEDS: FLUCONAZOLE 50 MG TAB PO ONE (10:12)
[2025-02-24 13:10] VITALS: O2SAT 98
== END 2025-02-24 11:04 | disposition home or self-care (01) | DRG 871 ==
LOC: EDINP 21:46 → ED 21:46 → SUATTDRO 02-20 02:26 → EDINP 02-20 03:37 → 3E 02-20 08:40 → SUATTDRO 02-20 11:04